=== PATIENT | male | born 1980 | race Caucasian/White ===

== ENCOUNTER 2021-02-02 16:44 | Observation (INO) | payer OTHER ==
[2021-02-02 17:21] LABS: Absolute Lymphocytes (CBC) 1.2 K/uL (0.7-4.9); Basophils % 0.7 % (0-1.3); Hematocrit 44.3 % (39.6-49.0); Lymphocytes % 18.6 % (15.3-44.8); MPV 10.1 fL (7.6-11.3); RBC Red Blood Cell Count 5.03 M/uL (4.33-5.43)
[2021-02-02 17:24] LABS: Urine Blood Trace-intact (Negative); Urine Glucose Negative (Negative); Urine Protein Negative (Negative)
[2021-02-02] MEDS ORDERED: LABETALOL 20 MG/4ML SYRINGE IV ONE (17:28)
[2021-02-02] MEDS ORDERED: ASPIRIN 81 MG CHEWABLE TABLET ONE (17:28)
[2021-02-02 17:33] LABS: Protime INR 0.93
[2021-02-02 17:43] LABS: Barbiturates NEGATIVE (NEGATIVE); Benzodiazepines NEGATIVE (NEGATIVE); Cocaine NEGATIVE (NEGATIVE); METHAMPHETAM NEGATIVE (NEGATIVE); Methadone NEGATIVE (NEGATIVE); Opiates NEGATIVE (NEGATIVE); Phencyclidine NEGATIVE (NEGATIVE); THC Cannibis NEGATIVE (NEGATIVE)
--- NOTE | 2021-02-02 17:45 | RAD REPORT ---
EXAM DESCRIPTION: Mode Single View02/02/2021 5:24 pm CLINICAL HISTORY: Chest pain COMPARISON: none FINDINGS: The lungs appear clear of acute infiltrate. The heart is normal size IMPRESSION: No acute abnormalities displayed
[2021-02-02 17:48] LABS: ALT/SGPT 35 U/L (12-78); AST/SGOT 23 U/L (15-37); Albumin 4.1 g/dL (3.4-5.0); Alkaline Phosphatase 63 U/L (45-117); BUN Blood Urea Nitrogen 13 mg/dL (7-18); Bicarbonate 26 mmol/L (21-32); Bilirubin Direct < 0.1 mg/dL (0-0.2); Bilirubin Total 0.3 mg/dL (0.2-1.0); Glucose Level 95 mg/dL (74-106); NT PRO-BNP 109 pg/mL (<125); Potassium 3.8 mmol/L (3.5-5.1); Protein, Total 7.2 g/dL (6.4-8.2); Sodium Level 139 mmol/L (136-145); Troponin (Emerg Dept Use Only) < 0.02 ng/mL (0.0-0.045)
[2021-02-02] MEDS ORDERED: cloNIDine HCL 0.1 MG TAB ONE (18:41)
--- NOTE | 2021-02-02 19:40 | ER ---
Nurse's Notes [facility] Name: Aaron Dominguez Age: 40 yrs Sex: Male : 1980 Arrival Date: 02/02/2021 Time: 16:47 Bed 8 Private MD: Diagnosis: Essential (primary) hypertension;Chest pain, unspecified Presentation: 02/02 16:47 Chief complaint: EMS states: Chest tightness and then anxiety attack while at work. BP hb 184/129, HR 113, SpO2 98% on RA. 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 Coronavirus screen: At this time, the client does not indicate any symptoms associated with coronavirus-19. Ebola Screen: No symptoms or risks identified at this time. Initial Sepsis Screen: Does the patient meet any 2 criteria? No. Patient's initial sepsis screen is negative. Does the patient have a suspected source of infection? No. Patient's initial sepsis screen is negative. Risk Assessment: Do you want to hurt yourself or someone else? Patient reports no desire to harm self or others. Onset of symptoms was February 02, 2021. 16:47 Method Of Arrival: EMS: [facility] hb 16:47 Acuity: ZINA 2 hb Triage Assessment: 16:50 General: Appears in no apparent distress. Behavior is calm, cooperative. Pain: Denies hb pain. EENT: No signs and/or symptoms were reported regarding the EENT system. Neuro: Level of Consciousness is awake, alert, obeys commands, Oriented to person, place, time, situation. Cardiovascular: Patient's skin is warm and dry. Rhythm is regular. Respiratory: Respiratory effort is even, unlabored, Respiratory pattern is regular, symmetrical. GI: No signs and/or symptoms were reported involving the gastrointestinal system. : No signs and/or symptoms were reported regarding the genitourinary system. Derm: Skin is pink, warm \T\ dry. Musculoskeletal: No signs and/or symptoms reported regarding the musculoskeletal system. Historical: - Allergies: 16:50 No Known Allergies; hb - Home Meds: 16:50 None [Active]; hb - PMHx: 16:50 None; hb - PSHx: 16:50 None; hb - Immunization history:: Adult Immunizations up to date. - Social history:: Smoking status: Patient denies any tobacco usage or history of. Screenin:51 Abuse screen: Denies threats or abuse. Denies injuries from another. Nutritional hb screening: No deficits noted. Tuberculosis screening: No symptoms or risk factors identified. Fall Risk None identified. Assessment: 16:51 General: see triage assessment . hb 17:25 Reassessment: Patient appears in no apparent distress at this time. Patient and/or hb family updated on plan of care and expected duration. Pain level reassessed. Patient is alert, oriented x 3, equal unlabored respirations, skin warm/dry/pink. 18:26 Reassessment: Patient appears in no apparent distress at this time. Patient and/or hb family updated on plan of care and expected duration. Pain level reassessed. Patient is alert, oriented x 3, equal unlabored respirations, skin warm/dry/pink. Patient denies pain at this time. 19:00 Reassessment: Patient appears in no apparent distress at this time. Patient and/or jb4 family updated on plan of care and expected duration. Pain level reassessed. Patient is alert, oriented x 3, equal unlabored respirations, skin warm/dry/pink. Patient denies pain at this time. Patient states feeling better. 20:00 Reassessment: Patient appears in no apparent distress at this time. Patient and/or jb4 family updated on plan of care and expected duration. Pain level reassessed. Patient is alert, oriented x 3, equal unlabored respirations, skin warm/dry/pink. Hospitalist is at the bedside. Patient denies pain at this time. 21:00 Reassessment: Patient appears in no apparent distress at this time. Patient and/or jb4 family updated on plan of care and expected duration. Pain level reassessed. Patient is alert, oriented x 3, equal unlabored respirations, skin warm/dry/pink. 22:00 Reassessment: Patient appears in no apparent distress at this time. Patient and/or jb4 family updated on plan of care and expected duration. Pain level reassessed. Patient is alert, oriented x 3, equal unlabored respirations, skin warm/dry/pink. Vital Signs: 16:47 BP 195 / 137; Pulse 97; Resp 20; Temp 97.8; Pulse Ox 100% on R/A; Pain 0/10; hb 18:26 BP 182 / 122; Pulse 77; Resp 15; Pulse Ox 99% on R/A; hb 19:49 BP 164 / 115; Pulse 84; Resp 16 S; Pulse Ox 99% ; bb 21:00 BP 169 / 18; Pulse 82; Resp 18; Pulse Ox 100% on R/A; jb4 22:00 BP 159 / 124; Pulse 79; Resp 16; Pulse Ox 100% on R/A; jb4 ED Course: 16:47 Patient arrived in ED. hb 16:50 Triage completed. hb 16:50 Arm band placed on. hb 16:51 Patient has correct armband on for positive identification. Bed in low position. Call hb light in reach. 16:56 Ish Ray PA is PHCP. cp 16:56 Damien Land MD is Attending Physician. cp 17:04 Margarette Grimm, FELIPE is Primary Nurse. hb 17:10 Initial lab(s) drawn, by me, sent to lab. aa5 17:24 XRAY Chest (1 view) In Process Unspecified. EDMS 19:37 Zarina Neal MD is Hospitalizing Provider. cp 19:49 No provider procedures requiring assistance completed. Patient admitted, IV remains in bb place. Administered Medications: 17:25 Drug: NS 0.9% 1000 ml Route: IV; Rate: 1 bolus; Site: left antecubital; hb 18:25 Follow up: Response: No adverse reaction; IV Status: Completed infusion; IV Intake: hb 1000ml 17:25 Drug: Aspirin Chewable Tablet 324 mg Route: PO; hb 18:25 Follow up: Response: No adverse reaction hb 17:25 Drug: Labetalol 20 mg Route: IVP; Infused Over: 2 mins; Site: left antecubital; hb 18:25 Follow up: Response: No adverse reaction hb 18:25 Drug: cloNIDine 0.2 mg Route: PO; hb Intake: 18:25 IV: 1000ml; Total: 1000ml. hb Outcome: 19:40 Decision to Hospitalize by Provider. cp 19:49 Instructed on the need for admit. bb 22:34 Admitted to Tele accompanied by nurse, via wheelchair, room 431, with chart, Report jb4 called to FELIPE Muñoz 22:34 Condition: stable 22:34 Discharge instructions given to patient, Instructed on the need for admit, Demonstrated understanding of instructions. 22:38 Patient left the ED. jb4 Signatures: Dispatcher [employer] EDMS Sherri Rosario, RN RN bb Reny Galindo, RN RN aa5 Ish Ray PA PA cp Baxter, Heather, RN RN hb Mihai Davalos, RN RN jb4
--- NOTE | 2021-02-02 19:41 | EDPHYS ---
Physician Documentation [facility] Name: Aaron Dominguez Age: 40 yrs Sex: Male : 1980 Arrival Date: 02/02/2021 Time: 16:47 Bed 8 Private MD: ED Physician Damien Land HPI: 02/02 17:05 This 40 yrs old Male presents to ER via EMS with complaints of Chest Pain, cp Anxiety, High Blood Pressure. 17:05 The patient or guardian reports chest pain that is located primarily in the anterior cp chest wall. 17:05 The chest pain is described as tightness. Duration: The patient or guardian reports a cp single episode, that is now resolved. 17:05 Associated signs and symptoms: Pertinent negatives: abdominal pain, diaphoresis, cp headache, lower extremity pain, lower extremity swelling, syncope. Historical: - Allergies: 16:50 No Known Allergies; hb - Home Meds: 16:50 None [Active]; hb - PMHx: 16:50 None; hb - PSHx: 16:50 None; hb - Immunization history:: Adult Immunizations up to date. - Social history:: Smoking status: Patient denies any tobacco usage or history of. ROS: 17:10 Constitutional: Negative for body aches, chills, fever, poor PO intake. cp 17:10 Eyes: Negative for injury, pain, redness, and discharge. cp 17:10 ENT: Negative for ear pain, sore throat, difficulty swallowing, difficulty handling secretions. 17:10 Cardiovascular: Positive for chest pain, Negative for edema, palpitations. 17:10 Respiratory: Negative for cough, shortness of breath, wheezing. 17:10 Abdomen/GI: Negative for abdominal pain, nausea, vomiting, and diarrhea. 17:10 Back: Negative for radiated pain. 17:10 Neuro: Negative for altered mental status, dizziness, headache, syncope, weakness. 17:10 All other systems are negative. Exam: 17:15 Constitutional: The patient appears in no acute distress, alert, awake, cp non-diaphoretic, non-toxic, well developed, well nourished. 17:15 Head/Face: Normocephalic, atraumatic. cp 17:15 Eyes: Periorbital structures: appear normal, Conjunctiva: normal, no exudate, no injection, Sclera: no appreciated abnormality, Lids and lashes: appear normal, bilaterally. 17:15 ENT: External ear(s): are unremarkable, Nose: is normal, Mouth: Lips: moist, Oral mucosa: moist, Posterior pharynx: Airway: no evidence of obstruction, patent. 17:15 Neck: ROM/movement: is normal, is supple, without pain, no range of motions limitations. 17:15 Chest/axilla: Inspection: normal, Palpation: is normal, no crepitus, no tenderness. 17:15 Cardiovascular: Rate: normal, Rhythm: regular, Heart sounds: murmur, not appreciated, Edema: is not appreciated, JVD: is not appreciated. 17:15 Respiratory: the patient does not display signs of respiratory distress, Respirations: normal, no use of accessory muscles, no retractions, labored breathing, is not present, Breath sounds: are clear throughout, no decreased breath sounds, no stridor, no wheezing. 17:15 Abdomen/GI: Inspection: abdomen appears normal, Palpation: abdomen is soft and non-tender, in all quadrants. 17:15 Neuro: Orientation: to person, place \\T\\ time. Mentation: is normal, Motor: moves all fours, strength is normal. 17:20 ECG was reviewed by the Attending Physician. Vital Signs: 16:47 BP 195 / 137; Pulse 97; Resp 20; Temp 97.8; Pulse Ox 100% on R/A; Pain 0/10; hb 18:26 BP 182 / 122; Pulse 77; Resp 15; Pulse Ox 99% on R/A; hb 19:49 BP 164 / 115; Pulse 84; Resp 16 S; Pulse Ox 99% ; bb 21:00 BP 169 / 18; Pulse 82; Resp 18; Pulse Ox 100% on R/A; jb4 22:00 BP 159 / 124; Pulse 79; Resp 16; Pulse Ox 100% on R/A; jb4 MDM: 17:03 Patient medically screened. cp 17:30 Differential diagnosis: abnormal EKG, acute myocardial infarction, pancreatitis, cp pneumonia, pneumothorax, pulmonary embolus, stable angina, unstable angina, Aortic aneurysm. 19:40 Data reviewed: vital signs, nurses notes, lab test result(s), EKG, radiologic studies, cp plain films. 19:40 Test interpretation: by ED physician or midlevel provider: ECG, plain radiologic cp studies. Counseling: I had a detailed discussion with the patient and/or guardian regarding: the historical points, exam findings, and any diagnostic results supporting the discharge/admit diagnosis, the presence of at least one elevated blood pressure reading (>120/80) during this emergency department visit, lab results, the need for further work-up and treatment in the hospital. Response to treatment: the patient's symptoms have mildly improved after treatment. ED course: VSS. Initial troponin and EKG negative for STEMI. Blood pressure continues to be elevated even after administration of IV trandate and oral clonidine. Will admit for evaluation and treatment of blood pressure. 02/02 16:58 Order name: Basic Metabolic Panel; Complete Time: 17:57 cp 02/02 17:58 Interpretation: Normal except: GFR 78. cp 02/02 16:58 Order name: CBC with Diff; Complete Time: 17:57 cp 02/02 16:58 Order name: LFT's; Complete Time: 17:57 cp 02/02 16:58 Order name: Magnesium; Complete Time: 17:57 cp 02/02 16:58 Order name: NT PRO-BNP; Complete Time: 17:57 cp 02/02 16:58 Order name: PT-INR; Complete Time: 17:57 cp 02/02 16:58 Order name: Troponin (emerg Dept Use Only); Complete Time: 17:57 cp 02/02 16:58 Order name: XRAY Chest (1 view); Complete Time: 17:57 cp 02/02 16:58 Order name: UDS; Complete Time: 17:57 cp 02/02 17:23 Order name: Urine Dipstick-Ancillary; Complete Time: 17:57 EDMS 02/02 17:58 Interpretation: Normal except: UBLD Trace-intact. cp 02/02 20:04 Order name: COVID-19 : Document "Date of Symptom Onset" if Symptomatic. jb4 02/02 21:38 Order name: SARS-COV-2 RT PCR EDND 02/02 16:58 Order name: EKG; Complete Time: 16:58 cp 02/02 16:58 Order name: Cardiac monitoring; Complete Time: 17:25 cp 02/02 16:58 Order name: EKG - Nurse/Tech; Complete Time: 17:25 cp 02/02 16:58 Order name: IV Saline Lock; Complete Time: 17:25 cp 02/02 16:58 Order name: Labs collected and sent; Complete Time: 17:25 cp 02/02 16:58 Order name: O2 Per Protocol; Complete Time: 17:25 cp 02/02 16:58 Order name: O2 Sat Monitoring; Complete Time: 17:25 cp 02/02 19:28 Order name: Vital Signs: recheck to include blood pressure; Complete Time: 20:04 cp EC:20 Rate is 93 beats/min. Rhythm is regular. GA interval is normal. QRS interval is normal. cp QT interval is normal. T waves are Inverted in lead aVR. Interpreted by me. Reviewed by me. Administered Medications: 17:25 Drug: NS 0.9% 1000 ml Route: IV; Rate: 1 bolus; Site: left antecubital; hb 18:25 Follow up: Response: No adverse reaction; IV Status: Completed infusion; IV Intake: hb 1000ml 17:25 Drug: Aspirin Chewable Tablet 324 mg Route: PO; hb 18:25 Follow up: Response: No adverse reaction hb 17:25 Drug: Labetalol 20 mg Route: IVP; Infused Over: 2 mins; Site: left antecubital; hb 18:25 Follow up: Response: No adverse reaction hb 18:25 Drug: cloNIDine 0.2 mg Route: PO; hb Disposition Summary: 02/02/21 19:40 Hospitalization Ordered Hospitalization Status: Observation cp Provider: Zarina Neal cp Location: Telemetry/MedSurg (observation) cp Condition: Stable cp Problem: new cp Symptoms: have improved cp Bed/Room Type: Standard Room Assignment: 431(02/02/21 22:03) tt3 Diagnosis - Essential (primary) hypertension cp - Chest pain, unspecified cp Forms: - Medication Reconciliation Form cp - SBAR form cp Addendum: 02/04/2021 19:19 Co-signature as Attending Physician, Damien Land MD. r n Signatures: Dispatcher [employer] EDMS Damien Land MD MD rn Page, Corey, PA PA cp Margarette Grimm RN RN hb Trim, Tyler tt3 Corrections: (The following items were deleted from the chart) 02/02 18:55 17:57 Angio Aorta For Dissection+CT.RAD.BRZ ordered. EDMS EDMS 20:28 20:05 CORONAVIRUS ordered. EDMS EDMS 22:03 19:40 cp tt3
--- NOTE | 2021-02-02 22:10 | P.HP ---
Certification for Inpatient Patient admitted to: Observation With expected LOS: <2 Midnights Patient will require the following post-hospital care: None Practitioner: I am a practitioner with admitting privileges, knowledge of patient current condition, hospital course, and medical plan of care. Services: Services provided to patient in accordance with Admission requirements found in Title 42 Section 412.3 of the Code of Federal Regulations <BeChristopher Jyoti - Last Filed: 02/02/21 22:02> Patient History Date of Service: 02/02/21 Reason for admission: chest pain, hypertensive urgency History of Present Illness: Mr. Dominguez is a 40 yo M with ADHD, tobacco use disorder here today for 5/10 sharp sternal chest pain radiating to the shoulders beginning while he was sitting down. Pain is worse with deep breaths and lasted for 5 minutes at its worst. BP was 195/137 on presentation to the ED. He says with anxiety attacks he normally has chest pressure, but never pain like this. He says he drank twice as much caffeine as usual today. He took 10mg of Adderall today. He smokes 1/2-1 full ppd. He drinks a heavy amount of alcohol on the weekends. His dad had a stroke and 2 aneurysms a few months ago. His grandfather had a stroke, [place], and [place]. Initial troponin and EKG wnl. - Past Medical/Surgical History Diabetic: No -: ADHD Past Surgical History: Patient denies surgical history Psychosocial/ Personal History: . works for [employer]. - Social History Smoking Status: Current every day smoker Smoking therapy provided: Yes Patient receptive to therapy: No Alcohol use: Yes CD- Drugs: No Caffeine use: Yes Place of Residence: Home <Christopher Lr - Last Filed: 02/02/21 22:02> Date of Service: 02/02/21 <Zarina Neal - Last Filed: 02/08/21 03:29> Review of Systems 10-point ROS is otherwise unremarkable Cardiovascular: Chest Pain <Christopher Lr - Last Filed: 02/02/21 22:02> Physical Examination - Physical Exam General: Alert, In no apparent distress HEENT: Atraumatic, PERRLA, Mucous membr. moist/pink, EOMI, Sclerae nonicteric Neck: Supple, 2+ carotid pulse no bruit, No LAD, Without JVD or thyroid abnormality Respiratory: Clear to auscultation bilaterally, Normal air movement Cardiovascular: Regular rate/rhythm, Normal S1 S2 Gastrointestinal: Normal bowel sounds, No tenderness Musculoskeletal: No tenderness Integumentary: No rashes Neurological: Normal gait, Normal speech, Normal strength at 5/5 x4 extr, Normal tone, Normal affect Lymphatics: No axilla or inguinal lymphadenopathy - Studies Laboratory Data (last 24 hrs) 02/02/21 17:10: PT 10.7, INR 0.93 02/02/21 17:10: WBC 6.50, Hgb 14.9, Hct 44.3, Plt Count 168 02/02/21 17:10: Sodium 139, Potassium 3.8, BUN 13, Creatinine 1.06, Glucose 95, Magnesium 2.0, Total Bilirubin 0.3, AST 23, ALT 35, Alkaline Phosphatase 63 <Christopher Lr - Last Filed: 02/02/21 22:02> Assessment and Plan - Problems (Diagnosis) (1) Chest pain Status: Acute Qualifiers: Chest pain type: unspecified Qualified Code(s): R07.9 - Chest pain, unspecified (2) Hypertensive urgency Status: Acute (3) Tobacco use Status: Acute (4) Alcohol use Status: Acute - Plan cardiology consulted daily ASA, BB, statin thyroid panel and lipid panel pending morphine and nitro PRN hydralazine for BP spikes, will need to go home on antihypertensive agent dietitian consulted DVT ppx Discharge Plan: Home Plan to discharge in: 24 Hours - Advance Directives Does patient have a Living Will: No Does patient have a Durable POA for Healthcare: No - Code Status/Comfort Care Code Status Assessed: Yes (full code ) Critical Care: No Time Spent Managing Pts Care (In Minutes): 70 <Christopher Lr - Last Filed: 02/02/21 22:02> Date of Service: 02/02/21 Subjective: Agree with plan of care as mentioned above. Strict blood pressure control Physical Examination: Vitals: Afebrile vital signs are stable Physical exam: Cardiovascular: Within normal limits. Lungs: Within normal limits Abdomen: Within normal limits Neuro: Awake, alert, oriented to person place and time Assessment: 1. Chest pain rule out acute coronary syndrome Plan: 1. Serial troponins and EKG 2. Appreciate Cardiology consultation 3. Echocardiogram 4. Anti-platelet therapy, anti coagulation, beta-rebecca, statin, and O2 as needed 5. IV morphine for pain 6. Nitro p.r.n. <Zarina Neal - Last Filed: 02/08/21 03:29>
[2021-02-02] MEDS ORDERED: ACETAMINOPHEN 500 MG TAB PO PRN (22:47)
[2021-02-02] MEDS ORDERED: MORPHINE 2 MG/ML SYR IV PRN (22:47)
[2021-02-02] MEDS ORDERED: ONDANSETRON 4 MG/2 ML VIAL IV PRN (22:47)
[2021-02-02] MEDS ORDERED: ATORVASTATIN 20 MG TAB PO SCH (22:47)
[2021-02-02] MEDS ORDERED: NITROGLYCERIN 0.4 MG/TAB SL PRN (22:47)
[2021-02-02] MEDS ORDERED: HYDRALAZINE HCL 20 MG/ML VIAL IV PRN (22:47)
[2021-02-02 23:29] VITALS: BMI 30.7
[2021-02-03 04:05] LABS: Absolute Lymphocytes (CBC) 2.4 K/uL (0.7-4.9); Basophils % 0.8 % (0-1.3); Hematocrit 41.1 % (39.6-49.0); Lymphocytes % 37.6 % (15.3-44.8); MPV 10.4 fL (7.6-11.3); RBC Red Blood Cell Count 4.68 M/uL (4.33-5.43)
[2021-02-03 04:21] LABS: Albumin 3.6 g/dL (3.4-5.0); Bilirubin Total 0.4 mg/dL (0.2-1.0); Magnesium 2.3 mg/dL (1.8-2.4); Phosphorus 3.2 mg/dL (2.5-4.9); Potassium 3.5 mmol/L (3.5-5.1); Protein, Total 6.5 g/dL (6.4-8.2)
[2021-02-03 04:23] LABS: Thyroid Stimulating Hormone 6.78 uIU/mL (0.360-3.740)
[2021-02-03] MEDS: METOPROLOL TAR 25 MG TAB PO SCH ×2 (04:52→16:37)
[2021-02-03] MEDS ORDERED: POTASSIUM CL SA 10 MEQ TAB PO ONE (06:00)
[2021-02-03] MEDS ORDERED: cloNIDine HCL 0.1 MG TAB PO ONE (08:58)
[2021-02-03] MEDS ORDERED: LOSARTAN POTASSIUM 50 MG TABLET PO SCH (09:00)
[2021-02-03] MEDS ORDERED: hydroCHLOROthiazide 25 MG TAB PO SCH (09:00)
[2021-02-03] MEDS ORDERED: ASPIRIN EC 81 MG TAB PO SCH (09:00)
[2021-02-03] MEDS ORDERED: ENOXAPARIN 40 MG/0.4 ML SQ SCH (09:00)
[2021-02-03 12:46] VITALS: O2SAT 97
[2021-02-03 16:38] VITALS: BP 148/104
[2021-02-03 17:29] VITALS: TEMP 97.1
--- NOTE | 2021-02-04 08:09 | ECHO ---
HEIGHT: 5 ft 11 in WEIGHT: 220 lb 0 oz DATE OF STUDY: 02/03/[address]: Zarina Neal MD 2-DIMENSIONAL: YES M.MODE: YES DOPPLER: YES COLOR FLOW: YES TDS: NO PORTABLE: NO DEFINITY: NO BUBBLE STUDY: NO DIAGNOSIS: UNCONTROLLED HYPERTENSION, CONGESTIVE HEART FAILURE CARDIAC HISTORY: CATHERIZATION: NO SURGERY: NO PROSTHETIC VALVE: NO PACEMAKER: NO MEASUREMENTS (cm) DIASTOLIC (NORMALS) SYSTOLIC (NORMALS) IVSd 1.2 (0.6-1.2) LA Diam 3.0 (1.9-4.0) LVEF 76% LVIDd 4.3 (3.5-5.7) LVIDs 2.4 (2.0-3.5) %FS 44% LVPWd 1.2 (0.6-1.2) Ao Diam 2.9 (2.0-3.7) 2 DIMENSIONAL ASSESSMENT: RIGHT ATRIUM: NORMAL LEFT ATRIUM: NORMAL RIGHT VENTRICLE: NORMAL LEFT VENTRICLE: NORMAL TRICUSPID VALVE: NORMAL MITRAL VALVE: NORMAL PULMONIC VALVE: NORMAL AORTIC VALVE: NORMAL PERICARDIAL EFFUSION: NONE AORTIC ROOT: NORMAL LEFT VENTRICULAR WALL MOTION: NORMAL DOPPLER/COLOR FLOW: NORMAL COMMENTS: NORMAL 2D ECHOCARDIOGRAM WITH DOPPLER. NO WALL MOTION ABNORMALITY. NO EFFUSION. TECHNOLOGIST: Diana SANZ
--- NOTE | 2021-02-05 06:25 | EKG ---
Test Date: 2021-02-02 Test Time: 17:14:40 Clinical Staff Educator: HB MEASUREMENT RESULTS: Intervals: Rate: 93 TX: 150 QRSD: 88 QT: 384 QTc: 477 Caldwell: P: 52 TX: 150 QRS: 31 T: 44 INTERPRETIVE STATEMENTS: Normal sinus rhythm Normal ECG No previous ECG available for comparison Electronically Signed On 02-05-21 06:18:31 CDT by Geovanny Woodward
--- NOTE | 2021-02-05 11:47 | CON ---
Date of Consultation: 02/03/2021 Reason For Consultation: Hypertensive crisis. History Of Present Illness: Mr. Dominguez is a 40-year-old white male without any significant past cardi ac history, but has had a history of hypertension, but he does not take any medication and came in wi th blood pressure of 195/137 along with some discomfort in his chest, more like chest tightness. Den ied PND, orthopnea, pedal edema, palpitations, or syncope. Denied any nausea, vomiting, diaphoresis. Past Medical History: Negative. Allergies: NONE. Medications: Medication at home is negative. Review of Systems: Negative. Social History: Negative. Family History: Positive for hypertension. Physical Examination: Vital Signs: Blood pressure 195/137. His vital signs were stable. He was in sinus rhythm, afebrile . HEENT: Negative. Neck: Supple without any bruit, lymphadenopathy, JVD, or thyromegaly. Chest: Clear to auscultation and percussion. Cardiac: Regular rhythm and rate without any murmurs, gallops, or rubs. Abdomen: Benign. Extremities: No clubbing, cyanosis, or edema. Diagnostic Data: All normal. Echocardiogram, which was done today was also normal. Impression And Plan: 1.Hypertensive crisis. 2.Dyslipidemia. I think the patient needs to be on metoprolol, losartan, clonidine p.r.n., hydrochlorothiazide. He i s on Lovenox. He is on Lipitor. He is on aspirin. I am comfortable with him going home with that r jagdeep and I will see him in the office in the near future. He does have allergies to shellfish. As an outpatient if his blood pressure remains elevated, we will do a renal Doppler. We can see him as an outpatient and see if we can wean him off some of his medicine down the road. LUBNA/HESHAM Voice ID: [id number] Report ID: [id number]
--- NOTE | 2021-02-08 03:28 | P.DS ---
Discharge Date: 02/03/21 Disposition: ROUTINE DISCHARGE Discharge Condition: GOOD Reason for Admission: chest pain, hypertensive urgency Consultations: Cardiology Brief History of Present Illness: Mr. Dominguez is a 40 yo M with ADHD, tobacco use disorder here today for 5/10 sharp sternal chest pain radiating to the shoulders beginning while he was sitting down. Pain is worse with deep breaths and lasted for 5 minutes at its worst. BP was 195/137 on presentation to the ED. He says with anxiety attacks he normally has chest pressure, but never pain like this. He says he drank twice as much caffeine as usual today. He took 10mg of Adderall today. He smokes 1/2-1 full ppd. He drinks a heavy amount of alcohol on the weekends. His dad had a stroke and 2 aneurysms a few months ago. His grandfather had a stroke, [place], and [place]. Initial troponin and EKG wnl. Hospital Course: Patient's blood pressure was stabilized. Patient's ruled out for acute coronary syndrome. Patient's echocardiogram was unremarkable. At this time, patient is stable for discharge with outpatient follow with Cardiology in 1-2 weeks. Patient will probably need further testing including cardiac stress testing. Vital Signs/Physical Exam: Temp Pulse Resp BP Pulse Ox 97.1 F 80 16 148/104 H 100 02/03/21 16:00 02/03/21 16:37 02/03/21 16:00 02/03/21 16:37 02/03/21 16:00 General: Alert, In no apparent distress, Oriented x3 Laboratory Data at Discharge: WBC 6.50 K/uL (4.3-10.9) 02/03/21 03:17 Hgb 14.0 g/dL (13.6-17.9) 02/03/21 03:17 Hct 41.1 % (39.6-49.0) 02/03/21 03:17 Plt Count 189 K/uL (152-406) 02/03/21 03:17 PT 10.7 SECONDS (9.5-12.5) 02/02/21 17:10 INR 0.93 02/02/21 17:10 Sodium 138 mmol/L (136-145) 02/03/21 03:17 Potassium 3.5 mmol/L (3.5-5.1) 02/03/21 03:17 BUN 10 mg/dL (7-18) 02/03/21 03:17 Creatinine 0.95 mg/dL (0.55-1.3) 02/03/21 03:17 Glucose 91 mg/dL (74-106) 02/03/21 03:17 Phosphorus 3.2 mg/dL (2.5-4.9) 02/03/21 03:17 Magnesium 2.3 mg/dL (1.8-2.4) 02/03/21 03:17 Total Bilirubin 0.4 mg/dL (0.2-1.0) 02/03/21 03:17 AST 20 U/L (15-37) 02/03/21 03:17 ALT 29 U/L (12-78) 02/03/21 03:17 Alkaline Phosphatase 54 U/L (45-117) 02/03/21 03:17 Troponin I < 0.02 ng/mL (0.0-0.045) 02/03/21 08:41 Triglycerides 194 mg/dL (<150) H 02/03/21 03:17 Cholesterol 192 mg/dL (<200) 02/03/21 03:17 HDL Cholesterol 32 mg/dL (40-60) L 02/03/21 03:17 Cholesterol/HDL Ratio 6.00 02/03/21 03:17 Home Medications: Amlodipine [Norvasc*] 10 mg PO DAILY #30 tab 02/03/21 Hydralazine [Apresoline*] 25 mg PO TID #90 tab 02/03/21 Losartan Potassium [Cozaar*] 50 mg PO BID #60 tablet 02/03/21 Metoprolol Tartrate [Lopressor*] 25 mg PO BID 6AM 6PM #60 tab 02/03/21 New Medications: Hydralazine [Apresoline*] 25 mg PO TID #90 tab Losartan Potassium [Cozaar*] 50 mg PO BID #60 tablet Metoprolol Tartrate [Lopressor*] 25 mg PO BID 6AM 6PM #60 tab Amlodipine [Norvasc*] 10 mg PO DAILY #30 tab Physician Discharge Instructions: OK TO DC IV AND DC HOME Okay her return to work on Monday, February 08, 2021 FOLLOW-UP WITH PRIMARY CARE PROVIDER IN 1-2 WEEKS FOLLOW-UP WITH CARDIOLOGY IN 1-2 WEEKS RETURN TO THE ER IF symptoms worsen CALL or TEXT DR. MOREJON AT [phone] IF ANY QUESTIONS REGARDING HOSPITAL STAY. PLEASE CALL THE FLOOR AT [phone] IF ANY MEDICATION OR NURSING QUESTIONS. Diet: AHA Activity: Fall precautions Followup: NONE,NONE [Primary Care Provider] - Time spent managing pt's care (in minutes): 35
== END 2021-02-03 17:30 | disposition home or self-care (01) ==
LOC: ER 16:44 → ERHOLD 20:07 → 4TH 22:11
PROVIDERS: ADMIT Hospitalist; ATTEND Hospitalist
DX: I16.9 Hypertensive crisis, unspecified (principal); E78.5 Hyperlipidemia, unspecified; Z72.89 Other problems related to lifestyle; F90.9 Attention-deficit hyperactivity disorder, unspecified type; F17.210 Nicotine dependence, cigarettes, uncomplicated; Z71.6 Tobacco abuse counseling; Z91.013 Allergy to seafood; Z82.3 Family history of stroke; Z82.49 Family history of ischemic heart disease and other diseases of the circulatory system; Z83.3 Family history of diabetes mellitus
CPT/HCPCS: 96361; 93005; 93306; 85025 ×2; 80048; 36415; 83735 ×2; 84100; 85610; 80061; 80076; 84443; 81003; 84484 ×3; 84439; 80053; 83880; 80307; 71045; 94760 ×2; 96374; 99285; U0003; J0360; J1650; G0378 ×2